=== PATIENT | female | born 1980 | race Caucasian/White ===

== ENCOUNTER → 2020-07-28 | Outpatient (CLI) | payer OTHER | LOC: KOH-I 12:27 | DX: J06.9 Acute upper respiratory infection, unspecified (principal); J98.09 Other diseases of bronchus, not elsewhere classified | CPT/HCPCS: 71046 ==

== ENCOUNTER → 2020-08-09 | Outpatient (CLI) | payer OTHER | LOC: CT 14:00 | DX: R06.02 Shortness of breath (principal) | CPT/HCPCS: Q9967 ==

== ENCOUNTER 2021-06-24 11:04 | Emergency (ER) | payer OTHER ==
[2021-06-24] MEDS ORDERED: CYCLOBENZAPRINE10 MG PO (12:59)
[2021-06-24] MEDS ORDERED: AUGMENTIN 875-1 EACH PO (12:59)
== END 2021-06-24 13:10 | disposition home or self-care (01) ==
LOC: ER1 11:04
DX: J02.9 Acute pharyngitis, unspecified (principal); S39.012A Strain of muscle, fascia and tendon of lower back, initial encounter; F17.210 Nicotine dependence, cigarettes, uncomplicated; Z20.822 Contact with and (suspected) exposure to COVID-19; X58.XXXA Exposure to other specified factors, initial encounter
CPT/HCPCS: 81001; 86403; 87081; 87880; 99283; U0003